=== PATIENT | male | born 1940 | race Caucasian/White ===

== ENCOUNTER 2017-02-24 11:38 | Observation (INO) | payer MEDICARE, OTHER ==
[~2017-02-24] VITALS: Ht 170.2 cm; Wt 95.0 kg
[2017-02-24] VITALS (8 sets, daily range): BP systolic 145–158; BP diastolic 63–106; PULSE 64–83; RESP 18; TEMP 97.6–98.4; O2SAT 95–98
[~2017-02-24 11:38] MED LIST: ALLO300T2 PO; ASPI81TA11 PO; INDO75CA23 PO; METF-324 PO; METH1TAB25 PO; METO25 PO; PROSCAP7 PO; SIMV40TA PO; TAB-TAB PO
[2017-02-24] MEDS ORDERED: SODIUM CHLOR 0.9% 1000 ML INJ 1,000 ML IV ONE (11:53)
--- NOTE | 2017-02-24 11:54 | PD ---
HPI Chief Complaint: Syncope/Near-Syncope Time Seen by Provider: 11:54 Travel History International Travel<30 days: No Contact w/Intl Traveler<30days: No Traveled to known affect area: No History of Present Illness HPI 77-year-old year old male with history of hypertension, CAD, gout, diabetes, presents to the emergency department today following a syncopal episode. Patient was at the gym when he initially experienced a trip and fall. He did not strike his head. He went to "recover" in a chair when he became lightheaded nauseous and syncopized. Patient did not strike his head during this. He remains feeling nauseous. He has had no chest pain or tightness. He did become diaphoretic during this episode. Patient has had cardiac catheterization [place] [address] mckee with no stent placement. He has been evaluated for syncopal episodes in the past. He has no other symptoms to report this time. PFSH Past Medical History Cancer: No Cardiovascular Problems: Yes (OCCAS. ARRYHTHMIA, VASOVAGAL HX) Diabetes: Yes (TYPE II) Endocrine: Yes Gastrointestinal Disorders: No Genitourinary: No Hepatitis: No Hiatal Hernia: No Hypertension: Yes Immune Disorder: No Musculoskeletal: Yes (GOUT) Neurologic: No Psychiatric: No Reproductive: No Respiratory: No Thyroid Disease: No ?: Not Past Surgical History Abdominal Surgery: No AICD: No Cardiac Surgery: No Ear Surgery: No Endocrine Surgery: No Eye Surgery: Yes (RIGHT CATARACT EXTRACTION) Genitourinary Surgery: No Gynecologic Surgery: No Joint Replacement: No Oral Surgery: No Pacemaker: No Thoracic Surgery: No Social History Alcohol Use: No Tobacco Use: No Substance Use: No Allergies-Medications (Allergen,Severity, Reaction): Coded Allergies: No Known Allergies (Unverified , 02/24/17) Reported Meds & Prescriptions Reported Meds & Active Scripts Active Reported Allopurinol 100 Mg Tab 100 Mg PO DAILY Losartan (Losartan Potassium) 25 Mg Tab 25 Mg PO DAILY Aspirin Low Dose (Aspirin) 81 Mg Chew 81 Mg CHEW DAILY Metoprolol Tartrate 25 Mg Tab 25 Mg PO DAILY Metformin (Metformin HCl) 1,000 Mg Tab 1,000 Mg PO BIDPC With meals Review of Systems Except as stated in HPI: all other systems reviewed are Neg Physical Exam Narrative GENERAL: Well-nourished male patient, sitting up in bed, diaphoretic, but in no acute distress SKIN: Focused skin assessment warm/diaphoretic. Abrasion on the left anterior knee. HEAD: Atraumatic. Normocephalic. EYES: Pupils equal and round. No scleral icterus. No injection or drainage. ENT: No nasal bleeding or discharge. Mucous membranes pink and moist. NECK: Trachea midline. No JVD. CARDIOVASCULAR: Regular rate and irregular rhythm. No murmur appreciated. RESPIRATORY: No accessory muscle use. Diminished bilateral bases, likely due to poor inspiratory effort, to auscultation. Breath sounds equal bilaterally. GASTROINTESTINAL: Abdomen soft, rotund, nontender.. Hepatic and splenic margins not palpable. MUSCULOSKELETAL: No obvious deformities. No clubbing. No cyanosis. No edema. Distal pulses are palpable. Cap refills within normal limits. Patient is able to fully flex and extend the bilateral lower extremities at the hips and knees without difficulty. No deformities. NEUROLOGICAL: Awake and alert. No obvious cranial nerve deficits. Motor grossly within normal limits. Normal speech. PSYCHIATRIC: Appropriate mood and affect; insight and judgment normal. Data Data Last Documented VS Vital Signs Date Time Temp Pulse Resp B/P Pulse Ox O2 Delivery O2 Flow Rate FiO2 02/24/17 11:58 97 Room Air 02/24/17 11:53 70 18 02/24/17 11:53 98.4 158/106 Orders Electrocardiogram (02/24/17 11:53) Complete Blood Count With Diff (02/24/17 11:53) Comprehensive Metabolic Panel (02/24/17 11:53) Magnesium (Mg) (02/24/17 11:53) Ckmb (Isoenzyme) Profile (02/24/17 11:53) Troponin I (02/24/17 11:53) Act Partial Throm Time (Ptt) (02/24/17 11:53) Prothrombin Time / Inr (Pt) (02/24/17 11:53) Urinalysis - C+S If Indicated (02/24/17 11:53) Chest, Single Ap (02/24/17 11:53) Ecg Monitoring (02/24/17 11:53) Iv Access Insert/Monitor (02/24/17 11:53) Oximetry (02/24/17 11:53) Sodium Chloride 0.9% Flush (Ns Flush) (02/24/17 12:00) Sodium Chlor 0.9% 1000 Ml Inj (Ns 1000 M (02/24/17 11:53) CKMB (02/24/17 11:50) CKMB% (02/24/17 11:50) Ct Brain W/O Iv Contrast(Rout) (02/24/17 ) Admit Order (Ed Use Only) (02/24/17 13:25) Labs Laboratory Tests Test 02/24/17 11:50 White Blood Count 7.5 TH/MM3 Red Blood Count 4.40 MIL/MM3 Hemoglobin 13.1 GM/DL Hematocrit 39.5 % Mean Corpuscular Volume 89.8 FL Mean Corpuscular Hemoglobin 29.7 PG Mean Corpuscular Hemoglobin 33.1 % Concent Red Cell Distribution Width 14.1 % Platelet Count 193 TH/MM3 Mean Platelet Volume 8.8 FL Neutrophils (%) (Auto) 71.1 % Lymphocytes (%) (Auto) 15.9 % Monocytes (%) (Auto) 7.7 % Eosinophils (%) (Auto) 4.4 % Basophils (%) (Auto) 0.9 % Neutrophils # (Auto) 5.3 TH/MM3 Lymphocytes # (Auto) 1.2 TH/MM3 Monocytes # (Auto) 0.6 TH/MM3 Eosinophils # (Auto) 0.3 TH/MM3 Basophils # (Auto) 0.1 TH/MM3 CBC Comment DIFF FINAL Differential Comment Prothrombin Time 10.7 SEC Prothromb Time International 1.0 RATIO Ratio Activated Partial 21.9 SEC Thromboplast Time Sodium Level 143 MEQ/L Potassium Level 4.0 MEQ/L Chloride Level 107 MEQ/L Carbon Dioxide Level 25.3 MEQ/L Anion Gap 11 MEQ/L Blood Urea Nitrogen 17 MG/DL Creatinine 1.26 MG/DL Estimat Glomerular Filtration 56 ML/MIN Rate Random Glucose 139 MG/DL Calcium Level 8.3 MG/DL Magnesium Level 2.0 MG/DL Total Bilirubin 0.6 MG/DL Aspartate Amino Transf 64 U/L (AST/SGOT) Alanine Aminotransferase 40 U/L (ALT/SGPT) Alkaline Phosphatase 60 U/L Total Creatine Kinase 2360 U/L Creatine Kinase MB 1.3 NG/ML Creatine Kinase MB % 0.1 % Troponin I 0.08 NG/ML Total Protein 7.0 GM/DL Albumin 3.5 GM/DL MDM Medical Decision Making Medical Screen Exam Complete: Yes Emergency Medical Condition: Yes Medical Record Reviewed: Yes Differential Diagnosis ACS versus electrolyte abnormality versus vasovagal response versus dehydration versus NSTEMI for syncope versus near syncope Narrative Course 77 year old male presents to emergency department for evaluation following a syncopal episode. Patient appears awake and alert. He denies any chest pain. He is reporting mild nausea and he is diaphoretic. EKG is reviewed from my attending physician. Patient has normal sinus rhythm with frequent PACs. There is a questionable old lateral infarct and diffuse depressed T waves. Laboratory Tests Test 02/24/17 11:50 White Blood Count 7.5 TH/MM3 Red Blood Count 4.40 MIL/MM3 Hemoglobin 13.1 GM/DL Hematocrit 39.5 % Mean Corpuscular Volume 89.8 FL Mean Corpuscular Hemoglobin 29.7 PG Mean Corpuscular Hemoglobin 33.1 % Concent Red Cell Distribution Width 14.1 % Platelet Count 193 TH/MM3 Mean Platelet Volume 8.8 FL Neutrophils (%) (Auto) 71.1 % Lymphocytes (%) (Auto) 15.9 % Monocytes (%) (Auto) 7.7 % Eosinophils (%) (Auto) 4.4 % Basophils (%) (Auto) 0.9 % Neutrophils # (Auto) 5.3 TH/MM3 Lymphocytes # (Auto) 1.2 TH/MM3 Monocytes # (Auto) 0.6 TH/MM3 Eosinophils # (Auto) 0.3 TH/MM3 Basophils # (Auto) 0.1 TH/MM3 CBC Comment DIFF FINAL Differential Comment Prothrombin Time 10.7 SEC Prothromb Time International 1.0 RATIO Ratio Activated Partial 21.9 SEC Thromboplast Time Sodium Level 143 MEQ/L Potassium Level 4.0 MEQ/L Chloride Level 107 MEQ/L Carbon Dioxide Level 25.3 MEQ/L Anion Gap 11 MEQ/L Blood Urea Nitrogen 17 MG/DL Creatinine 1.26 MG/DL Estimat Glomerular Filtration 56 ML/MIN Rate Random Glucose 139 MG/DL Calcium Level 8.3 MG/DL Magnesium Level 2.0 MG/DL Total Bilirubin 0.6 MG/DL Aspartate Amino Transf 64 U/L (AST/SGOT) Alanine Aminotransferase 40 U/L (ALT/SGPT) Alkaline Phosphatase 60 U/L Total Creatine Kinase 2360 U/L Creatine Kinase MB 1.3 NG/ML Creatine Kinase MB % 0.1 % Troponin I 0.08 NG/ML Total Protein 7.0 GM/DL Albumin 3.5 GM/DL Patient's troponin is elevated at 0.08. CK is 2360. Patient remains chest pain -free. I discussed the patient with my attending physician who recommends moving forward CT imaging of the brain so the patient can be started on heparin. [address] mckee. We have no EKG to compare this one too. He did do a cardiac catheterization 2012. He recommends observation admission with serial troponins and syncopal workup. Patient will need to be evaluated in his office on Monday for an event monitor to be placed. I discussed the patient with Dr. Willson. Patient will be admitted observation to his service. Diagnosis Primary Impression: Syncope Qualified Code: R55 - Syncope, unspecified syncope type Additional Impressions: Elevated troponin Elevated CK Admitting Information Admitting Physician Requests: Observation Condition: Stable Sofía Paul Feb 24, 2017 11:54
[2017-02-24] MEDS ORDERED: SODIUM CHLORIDE 0.9% FLUSH 10 ML FLUSH IVF PRN (12:00)
[2017-02-24] MEDS ORDERED: ALLO100T PO (12:03)
[2017-02-24] MEDS ORDERED: ASPI81CH37 CHEW (12:03)
[2017-02-24] MEDS ORDERED: LOSA25TA PO (12:03)
[2017-02-24] MEDS ORDERED: METO25TA3 PO (12:03)
[2017-02-24] MEDS ORDERED: METF1000 PO (12:03)
[2017-02-24 12:29] LABS: AUTOMATED NEUTROPHIL # 5.3 TH/MM3 (1.8-7.7); BASOPHIL # 0.1 TH/MM3 (0-0.2); BASOPHIL % 0.9 % (0.0-2.0); EOSINOPHIL # 0.3 TH/MM3 (0-0.4); EOSINOPHIL % 4.4 % (0.0-4.0); HEMATOCRIT 39.5 % (39.0-51.0); HEMO FLAGS DIFF FINAL; LYMPH % 15.9 % (9.0-44.0); LYMPHOCYTE # 1.2 TH/MM3 (1.0-4.8); MEAN CELL VOLUME 89.8 FL (80.0-100.0); MEAN CORPUSCULAR HEMOGLOBIN 29.7 PG (27.0-34.0); MEAN CORPUSCULAR HGB CONC 33.1 % (32.0-36.0); MONO % 7.7 % (0.0-8.0); NEUT % 71.1 % (16.0-70.0); PLATELET COUNT 193 TH/MM3 (150-450); RED CELL DISTRIBUTION WIDTH 14.1 % (11.6-17.2); WHITE BLOOD COUNT 7.5 TH/MM3 (4.0-11.0)
[2017-02-24 12:39] LABS: APTT (PATIENT) 21.9 SEC (24.3-30.1); PROTHROMBIN TIME - PATIENT 10.7 SEC (9.8-11.6)
[2017-02-24 12:44] LABS: ALT (GPT) 40 U/L (12-78); ANION GAP 11 MEQ/L (5-15); AST (GOT) 64 U/L (15-37); BICARBONATE 25.3 MEQ/L (21.0-32.0); BLOOD UREA NITROGEN 17 MG/DL (7-18); CHLORIDE 107 MEQ/L (98-107); GLOMERULAR FILTRATION RATE 56 ML/MIN (>89); SODIUM (NA) 143 MEQ/L (136-145)
[2017-02-24 12:58] LABS: ALKALINE PHOSPHATASE 60 U/L (45-117); CREATINE KINASE 2360 U/L (39-308); TOTAL BILIRUBIN ADULT 0.6 MG/DL (0.2-1.0)
--- NOTE | 2017-02-24 13:07 | RADRPT ---
EXAM DATE/TIME: 02/24/2017 12:25 [facility] COMPARISON: No previous studies available for comparison. INDICATIONS : Syncopal episode after falling. MEDICAL HISTORY : Hypertension. Diabetes mellitus type II. SURGICAL HISTORY : None. ENCOUNTER: Initial ACUITY: 1 day PAIN SCORE: 0/10 LOCATION: Bilateral chest FINDINGS: The lungs are clear. The heart is minimally enlarged. The pulmonary vascularity is normal. There is n o evidence for infiltrate or failure. The portion of the bony skeleton visualized is unremarkable. CONCLUSION: Compensated cardiomegaly otherwise negative Fabian Manning MD FACR Board Certified Radiologist. This report was verified electronically.
[2017-02-24 13:10] LABS: CKMB 1.3 NG/ML (0.5-3.6)
--- NOTE | 2017-02-24 13:53 | HHI.HP ---
HPI Service CP Hospitalists Primary Care Physician Pb Lindsay MD Admission Diagnosis syncopal episode; elevated troponin; elevated ck Chief Complaint: Syncopal episode Travel History International Travel<30 Days: No Contact w/Intl Traveler <30 Da: No Traveled to Known Affected Are: No History of Present Illness Mr. Arzate is a 77 y/o male with hypertension, nonobstructing CAD, Hx of NSVT in 2013, hx of vasovagal syncope, and diabetes who presented to the ED at [facility] today following a syncopal episode at the gym. The pt was walked a mile this morning and then went to the gym and after using several of the workout machines be accidentally tripped over one of the machines and skinned up his knee. He did not strike his head when he fell. He sat down in a chair when he saw the blood on his knee and became lightheaded, diaphoretic, and nauseous and he syncopized. Pt was out for approximately 2 minutes. He did not have any seizure activity noted, no loss of bowel or bladder function. There was no confusion when he came to. He denies any chest pain/tightness, palpitations, or SOB. Patient has had cardiac catheterization in [address] Sexton with no stent placement. He has been evaluated for syncopal episodes in the past and in 2013 had noted NSVT on Holter monitor. He is on Metoprolol 25mg daily but [facility] records notes it is prescribed BID. Labs at admission noted mildly elevated troponin of 0.08 and total CK 2360. Pts EKG with noted sinus rhythms with some PVCs and PACs. Review of Systems Constitutional: COMPLAINS OF: Diaphoretic episodes, Dizziness, DENIES: Fever, Chills Eyes: DENIES: Vision loss Ears, nose, mouth, throat: DENIES: Hearing loss Respiratory: DENIES: Cough, Shortness of breath Cardiovascular: COMPLAINS OF: Syncope, DENIES: Chest pain, Palpitations Gastrointestinal: COMPLAINS OF: Nausea, DENIES: Abdominal pain, Constipation, Diarrhea, Vomiting Genitourinary: DENIES: Hematuria Musculoskeletal: DENIES: Back pain Integumentary: DENIES: Rash Neurologic: DENIES: Headache Psychiatric: DENIES: Confusion Past Family Social History Past Medical History CAD Hx of NSVT in 2013 Hx of vasovagal syncope Diabetes mellitus HTN Hyperlipidemia Ocular migraines Osteoarthritis Gout Inguinal hernia 2D echo (02/2013) - Mild concentric hypertrophy, estimated EF 55-60%, no evidence of diastolic dysfunction - LA mildly dilated - RV upper limits of normal - Mild thickening of the aortic valve leaflets, aortic sclerosis without stenosis - Mild thickening of the mitral valve leaflets, mild mitral regurgitation - PA systolic pressure could not be estimated due to insufficient jet of tricuspid regurgitation - Dilation of the aortic root Past Surgical History Cataract surgery [facility] (2012) --> Moderate mid LAD and branch vessel CAD, normal to mildly elevated left sided filling pressures, normal LV systolic function, tortuous right subclavian artery Reported Medications -Allopurinol 100 Mg PO DAILY -Losartan 25 Mg PO DAILY -Aspirin 81 Mg CHEW DAILY -Metoprolol Tartrate 25 Mg PO BID -Metformin 1,000 Mg PO BIDPC Allergies: Coded Allergies: No Known Allergies (Unverified , 02/24/17) Family History Brother with hx of prostate cancer Mother with RA Social History Denies any alcohol, tobacco or illicit drug use Pt is currently He is a professor Physical Exam Vital Signs Vital Signs Date Time Temp Pulse Resp B/P Pulse Ox O2 Delivery O2 Flow Rate FiO2 02/24/17 13:40 76 18 145/63 96 Room Air 02/24/17 11:58 97 Room Air 02/24/17 11:53 70 18 97 Room Air 02/24/17 11:53 98.4 70 18 158/106 97 Room Air 02/24/17 11:46 98.4 68 18 97 Physical Exam GENERAL: This is a well-nourished, well-developed patient, in no apparent distress. HEENT: Atraumatic. Normocephalic. No temporal or scalp tenderness. No scleral icterus. Airway patent. NECK: Trachea midline, supple, nontender. CARDIO: Regular. RESP: CTA bilaterally. No wheezes, rales, or rhonchi. ABD: +BS, soft, non-tender, nondistended. EXT: Extremities without clubbing, cyanosis, or edema. NEURO: Awake and alert. Motor and sensory grossly within normal limits. Normal speech. Laboratory Laboratory Tests Test 02/24/17 11:50 White Blood Count 7.5 Red Blood Count 4.40 Hemoglobin 13.1 Hematocrit 39.5 Mean Corpuscular Volume 89.8 Mean Corpuscular Hemoglobin 29.7 Mean Corpuscular Hemoglobin 33.1 Concent Red Cell Distribution Width 14.1 Platelet Count 193 Mean Platelet Volume 8.8 Neutrophils (%) (Auto) 71.1 Lymphocytes (%) (Auto) 15.9 Monocytes (%) (Auto) 7.7 Eosinophils (%) (Auto) 4.4 Basophils (%) (Auto) 0.9 Neutrophils # (Auto) 5.3 Lymphocytes # (Auto) 1.2 Monocytes # (Auto) 0.6 Eosinophils # (Auto) 0.3 Basophils # (Auto) 0.1 CBC Comment DIFF FINAL Differential Comment Prothrombin Time 10.7 Prothromb Time International 1.0 Ratio Activated Partial 21.9 Thromboplast Time Sodium Level 143 Potassium Level 4.0 Chloride Level 107 Carbon Dioxide Level 25.3 Anion Gap 11 Blood Urea Nitrogen 17 Creatinine 1.26 Estimat Glomerular Filtration 56 Rate Random Glucose 139 Calcium Level 8.3 Magnesium Level 2.0 Total Bilirubin 0.6 Aspartate Amino Transf 64 (AST/SGOT) Alanine Aminotransferase 40 (ALT/SGPT) Alkaline Phosphatase 60 Total Creatine Kinase 2360 Creatine Kinase MB 1.3 Creatine Kinase MB % 0.1 Troponin I 0.08 Total Protein 7.0 Albumin 3.5 Result Diagram: 02/24/17 1150 02/24/17 1150 Imaging Last Impressions Chest X-Ray 02/24/17 1153 Signed Impressions: Service Date/Time: Friday, February 24, 2017 12:25 - CONCLUSION: Compensated cardiomegaly otherwise negative Fabian Manning MD FACR Head CT 02/24/17 0000 Signed Impressions: Service Date/Time: Friday, February 24, 2017 14:44 - CONCLUSION: No acute disease. Chaitanya Pineda MD Septic Shock Reassessment Heart: Regular rate and rhythm Lungs: Clear Skin: Warm Assessment and Plan Problem List: (1) Vasovagal syncope Status: Acute Plan: - Mr. Arzate is a 77 y/o male with hypertension, nonobstructing CAD, Hx of NSVT in 2012, and hx of vasovagal syncope - He presented to the ED at [facility] today following a syncopal episode at the gym after he accidentally tripped over one of the machines and skinned up his knee, after which he sat down in a chair when he saw the blood on his knee and became lightheaded, diaphoretic, and nauseous and he syncopized. There was no noted seizure activity, no loss of bowel or bladder function, or confusion. - The ED physician spoke to the pts Team Guide, Dr. Sexton and he recommended observation admission with serial troponin and syncopal workup. Patient will need to be evaluated in his office on Monday for an event monitor placement. - He has been evaluated for syncopal episodes in the past and in 2012 had noted NSVT on Holter monitor - Patient has had cardiac catheterization in [address] Sexton with noted nonobstructive CAD. - Cont. his Metoprolol 25mg BID. - Labs at admission noted mildly elevated troponin of 0.08 and total CK 2360. - Pts EKG with noted sinus rhythms with some PVCs and PACs. - Serial CE and EKGs - 2D echo - Telemetry - PT evaluation in AM - DVT prophylaxis with SCDs (2) Elevated troponin Status: Acute Plan: - See above. (3) HTN (hypertension) Status: Chronic Plan: - Cont. home meds - Monitor (4) Diabetes Status: Chronic Plan: - Cont. Metformin 1000mg po BID - NovoLog SSI - Accu checks (5) Hyperlipidemia Status: Chronic Assessment and Plan Patient examined. Assessment and plan formulated with Mini Suárez PA-C. I agree with the above. most likely vasovagal syncope after hitting left knee. Pt tripped while working out at gym. just finished a mile walk around the [place] as he does 3x week. and then worked out in [facility]. tele and ce overnight. His trace clerk was notified and wanted him to come by Monday for event monitor check echo. Pt wanted to go home then changed mind when ED wanted AMA to leave. Problem Qualifiers (1) Diabetes: Mini Suárez Feb 24, 2017 13:53 Vadim Baum MD Feb 24, 2017 19:57
[2017-02-24 13:58] LABS: BLOOD, URINE NEG (NEG); COMMENT (UR) CULTURE INDICATED; CULTURE IF INDICATED CULTURE INDICATED; GLUCOSE,URINE NEG (NEG); KETONE, URINE 10 mg/dL (NEG); NITRITE,URINE NEG (NEG); SQUAMOUS EPITHELIAL CELL URINE <1 /hpf (0-5); URINE COLOR YELLOW (YELLW/STRAW)
--- NOTE | 2017-02-24 15:00 | RADRPT ---
EXAM DATE/TIME: 02/24/2017 14:44 [facility] COMPARISON: No previous studies available for comparison. INDICATIONS : Evaulate for syncope. RADIATION DOSE: 44.45 CTDIvol (mGy) MEDICAL HISTORY : Cardiovascular disease. Hypertension. Diabetes mellitus type 2.Arryhthmia, Vasovagal hx. SURGICAL HISTORY : None. ENCOUNTER: Initial ACUITY: 1 day PAIN SCALE: 3/10 LOCATION: Bilateral cranial TECHNIQUE: Multiple contiguous axial images were obtained of the head. Using automated exposure control and adj ustment of the mA and/or kV according to patient size, radiation dose was kept as low as reasonably a chievable to obtain optimal diagnostic quality images. FINDINGS: CEREBRUM: The ventricles are normal for age. No evidence of midline shift, mass lesion, hemorrhage or acute in farction. No extra-axial fluid collections are seen. POSTERIOR FOSSA: The cerebellum and brainstem are intact. The 4th ventricle is midline. The cerebellopontine angle i s unremarkable. EXTRACRANIAL: The visualized portion of the orbits is intact. SKULL: The calvaria is intact. No evidence of skull fracture. CONCLUSION: No acute disease. Chaitanya Pineda MD on February 24, 2017 at 14:56 Board Certified Radiologist. This report was verified electronically.
[2017-02-24] MEDS: INSULIN ASPART SUPPLEMENTAL SCALE SQ SCH ×2 (16:00→20:45)
[2017-02-24 19:50] LABS: CKMB 1.6 NG/ML (0.5-3.6)
[2017-02-24] MEDS: metFORMIN HCL 500 MG TAB PO SCH (20:44)
[2017-02-24] MEDS: METOPROLOL TARTRATE 25 MG TAB PO SCH (20:44)
[2017-02-24] MEDS ORDERED: CEPHALEXIN MONOHYDRATE 500 MG CAP PO SCH (21:00)
[2017-02-25] MEDS ORDERED: PHENYLEPHRINE HCL 0.25% NASAL SPRAY 15 ML BTL NASAL PRN (00:30)
[2017-02-25 01:17] LABS: CKMB 1.7 NG/ML (0.5-3.6)
[2017-02-25 03:11] VITALS: BP 139/65; PULSE 68; RESP 18; TEMP 96.9; O2SAT 95
[2017-02-25] MEDS: INSULIN ASPART SUPPLEMENTAL SCALE SQ SCH ×2 (06:30→12:26)
[2017-02-25 06:50] VITALS: PULSE 67
[2017-02-25 08:08] VITALS: BP 151/67; PULSE 73; RESP 18; TEMP 98.1; O2SAT 96
[2017-02-25] MEDS: metFORMIN HCL 500 MG TAB PO SCH (08:56)
[2017-02-25] MEDS: METOPROLOL TARTRATE 25 MG TAB PO SCH (08:56)
[2017-02-25] MEDS ORDERED: LOSARTAN 25 MG TAB PO SCH (09:00)
[2017-02-25] MEDS ORDERED: ALLOPURINOL 100 MG TAB PO SCH (09:00)
[2017-02-25] MEDS ORDERED: ASPIRIN 81 MG CHEW TAB CHEW SCH (09:00)
[2017-02-25 11:38] VITALS: BP 138/63; PULSE 60; RESP 18; TEMP 98.1; O2SAT 94
--- NOTE | 2017-02-25 13:09 | EKG ---
Date Performed: 02/24/2017 Time Performed: 23:40:44 PTAGE: 77 years EKG: Sinus rhythm WITH FREQUENT SUPRAVENTRICULAR PREMATURE COMPLEXES ST DEVIATION AND MODERATE T-WAVE ABNORMALITY, CON CUSTOMER COUNTER REPRESENTATIVE LATERAL ISCHEMIA ST DEVIATION AND MODERATE T-WAVE ABNORMALITY, CONSIDER INFERIOR ISCHEMIA ABNOR MAL ECG PREVIOUS TRACING : 02/24/2017 19.27 Compared to prior tracing no significant change DOCTOR: Didier Pedroza Interpretating Date/Time 02/25/2017 13:07:59
--- NOTE | 2017-02-25 13:23 | EKG ---
Date Performed: 02/24/2017 Time Performed: 19:27:16 PTAGE: 77 years EKG: Sinus rhythm WITH OCCASIONAL SUPRAVENTRICULAR PREMATURE COMPLEXES LOW QRS VOLTAGE IN PRECORDIAL LEADS ST DEVIATIO N AND MODERATE T-WAVE ABNORMALITY, CONSIDER ANTEROLATERAL ISCHEMIA ST DEVIATION AND MODERATE T-WAVE A BNORMALITY, CONSIDER INFERIOR ISCHEMIA ABNORMAL ECG PREVIOUS TRACING : 02/24/2017 11.56 Compared to prior tracing no significant change DOCTOR: Didier Pedroza Interpretating Date/Time 02/25/2017 13:21:48
--- NOTE | 2017-02-25 13:36 | EKG ---
Date Performed: 02/24/2017 Time Performed: 11:56:18 PTAGE: 77 years EKG: Sinus rhythm WITH OCCASIONAL VENTRICULAR PREMATURE COMPLEXES WITH FREQUENT SUPRAVENTRICULAR PREMATURE COMPLEXES L OW QRS VOLTAGE IN PRECORDIAL LEADS MODERATE T-WAVE ABNORMALITY, CONSIDER ANTEROLATERAL ISCHEMIA MODER ATE T-WAVE ABNORMALITY, CONSIDER INFERIOR ISCHEMIA ABNORMAL ECG NO PREVIOUS TRACING DOCTOR: Didier Pedroza Interpretating Date/Time 02/25/2017 13:33:07
--- NOTE | 2017-02-25 13:56 | HHI.DCPOC ---
Discharge Care Plan Diagnosis: (1) Vasovagal syncope (2) Elevated CK (3) Diabetes (4) Hyperlipidemia (5) HTN (hypertension) Goals to Promote Your Health * To prevent worsening of your condition and complications * To maintain your health at the optimal level Directions to Meet Your Goals Take your medications as prescribed Follow your dietary instruction Follow activity as directed Keep your appointments as scheduled Take your immunizations and boosters as scheduled If your symptoms worsen call your PCP, if no PCP go to Urgent Care Center or Emergency Room Smoking is Dangerous to Your Health. Avoid second hand smoke Call the 24-hour hour crisis hotline for domestic abuse at Vadim Baum MD Feb 25, 2017 13:56
--- NOTE | 2017-02-25 14:00 | HHI.PR ---
Subjective Remarks wants to go home ambulated with PT Objective Vitals nad heart reg lung cta abd s/nt ext no edema Vital Signs Date Time Temp Pulse Resp B/P Pulse Ox O2 Delivery O2 Flow Rate FiO2 02/25/17 11:38 98.1 60 18 138/63 94 02/25/17 08:08 98.1 73 18 151/67 96 02/25/17 06:50 67 02/25/17 03:11 96.9 68 18 139/65 95 02/24/17 23:26 97.6 83 18 147/69 95 02/24/17 20:00 74 02/24/17 19:55 98.2 64 18 156/68 96 02/24/17 16:56 82 18 147/90 98 Room Air Result Diagram: 02/24/17 1150 02/24/17 1150 Imaging Last Impressions Chest X-Ray 02/24/17 1153 Signed Impressions: Service Date/Time: Friday, February 24, 2017 12:25 - CONCLUSION: Compensated cardiomegaly otherwise negative Fabian Manning MD FACR Head CT 02/24/17 0000 Signed Impressions: Service Date/Time: Friday, February 24, 2017 14:44 - CONCLUSION: No acute disease. Chaitanya Pineda MD A/P Problem List: (1) Vasovagal syncope Status: Acute Plan: - Mr. Arzate is a 77 y/o male with hypertension, nonobstructing CAD, Hx of NSVT in 2012, and hx of vasovagal syncope - He presented to the ED at [facility] today following a syncopal episode at the gym after he accidentally tripped over one of the machines and abraded up his knee, after which he sat down in a chair when he saw the blood on his knee and became lightheaded, diaphoretic, and nauseous and he syncopized. There was no noted seizure activity, no loss of bowel or bladder function, or confusion. - The ED physician spoke to the pts Manager Bilingual, Dr. Sexton and he recommended observation admission with serial troponin and syncopal workup. Patient will need to be evaluated in his office on Monday for an event monitor placement. - He has been evaluated for syncopal episodes in the past and in 2012 had noted NSVT on Holter monitor - Patient has had cardiac catheterization [place] [address] Minor with noted nonobstructive CAD. - Cont. his Metoprolol 25mg BID. - Pts EKG with noted sinus rhythms with some PVCs and PACs. - 2D echo pending - Telemetry no events recorded overnight - PT evaluation..pt stable ambulating -urine cx noted. who is nurse says not clean catch. He says absolutely no uti sx's but if develops then will call pcp. pt/ instructed to monitor bg closely over next several days and call and f/ u hot car charger who was notified on Monday. - (2) Elevated troponin Status: Acute Plan: - See above. (3) HTN (hypertension) Status: Chronic Plan: - Cont. home meds - Monitor (4) Diabetes Status: Chronic Plan: - Cont. Metformin 1000mg po BID - NovoLog SSI - Accu checks (5) Hyperlipidemia Status: Chronic Problem Qualifiers (1) Diabetes: Vadim Baum MD Feb 25, 2017 14:00
[2017-02-25 15:11] VITALS: BP 130/66; PULSE 74; RESP 18; TEMP 98.5; O2SAT 95
--- NOTE | 2017-02-25 16:26 | ECHRPT ---
Indication: chest pain CONCLUSIONS Normal left ventricular size. Mild concentric left ventricular hypertrophy. Mild mitral valve regurgitation. Mitral annular calcification is present. Aortic valve sclerosis is present, Calcification of the right coronary cusp. There is trace tricuspid valve regurgitation. BP: 145 / 63 HR: 76 Rhythm: Other MEASUREMENTS (Male / Female) Normal Values Technical Quality:Fair 2D ECHO LV Diastolic Diameter PLAX 4.4 cm 4.2 - 5.9 / 3.9 - 5.3 cm LV Systolic Diameter PLAX 3.2 cm IVS Diastolic Thickness 1.1 cm 0.6 - 1.0 / 0.6 - 0.9 cm LVPW Diastolic Thickness 1.0 cm 0.6 - 1.0 / 0.6 - 0.9 cm LV Relative Wall Thickness 0.5 RV Internal Dim ED PLAX 1.9 cm LA Systolic Diameter LX 3.7 cm 3.0 - 4.0 / 2.7 - 3.8 cm DOPPLER AV Peak Velocity 140.7 cm/s AV Peak Gradient 7.9 mmHg LVOT Peak Velocity 99.9 cm/s LVOT Peak Gradient 4.0 mmHg Mitral E Point Velocity 69.6 cm/s Mitral A Point Velocity 83.9 cm/s Mitral E to A Ratio 0.8 TR Peak Velocity 156.0 cm/s TR Peak Gradient 9.7 mmHg FINDINGS LEFT VENTRICLE Normal left ventricular size. Mild concentric left ventricular hypertrophy. The left ventricular systolic function is normal with an estimated ejection fraction in the range of 60-65%. RIGHT VENTRICLE Normal right ventricular size and systolic function. LEFT ATRIUM The left atrial size is normal. RIGHT ATRIUM The right atrial size is normal. ATRIAL SEPTUM Normal atrial septal thickness without atrial level shunting by limited color doppler interrogation. AORTA The aortic root and proximal ascending aorta are normal in size on limited imaging. MITRAL VALVE Mild mitral valve regurgitation. Mitral annular calcification is present. AORTIC VALVE Aortic valve sclerosis is present. Calcification of the right coronary cusp. TRICUSPID VALVE There is trace tricuspid valve regurgitation. PULMONARY VALVE The pulmonary valve is not well visualized. VESSELS The inferior vena cava is normal in size. PERICARDIUM No pericardial effusion. Anne Velázquez MD, FACC (Electronically Signed) Final Date:25 February 2017 16:26
== END 2017-02-25 16:43 | disposition home or self-care (01) ==
LOC: NEPC 11:38 → NEDA 13:27 → NEPHCDU 19:00
PROVIDERS: ADMIT Hospitalist; ATTEND Hospitalist
DX: R55 Syncope and collapse (principal); R74.8 Abnormal levels of other serum enzymes; I10 Essential (primary) hypertension; E11.9 Type 2 diabetes mellitus without complications; E78.5 Hyperlipidemia, unspecified; R94.31 Abnormal electrocardiogram [ECG] [EKG]; I49.3 Ventricular premature depolarization; R42 Dizziness and giddiness; R11.0 Nausea; R61 Generalized hyperhidrosis; I25.10 Atherosclerotic heart disease of native coronary artery without angina pectoris; I08.1 Rheumatic disorders of both mitral and tricuspid valves; M19.90 Unspecified osteoarthritis, unspecified site; Z79.899 Other long term (current) drug therapy; Z79.84 Long term (current) use of oral hypoglycemic drugs; Z79.82 Long term (current) use of aspirin; W01.0XXA Fall on same level from slipping, tripping and stumbling without subsequent striking against object, initial encounter; Y92.39 Other specified sports and athletic area as the place of occurrence of the external cause
CPT/HCPCS: 70450; 71010; 80053; 81001; 82550; 82552; 82948; 83735; 84484; 85025; 85610; 85730; 87077; 87086; 87186; 93005; 93306; 97163; 99285; G0378; G8987; G8988; J7030